=== PATIENT | female | born 1980 | race Caucasian/White ===

== ENCOUNTER 2023-11-27 03:23 | Emergency (ER) | payer BC, SELFPAY ==
[2023-11-27] VITALS (7 sets, daily range): BP systolic 95–118; BP diastolic 60–84; PULSE 68–85; RESP 16–18; O2SAT 96–99; BMI 29.2
[2023-11-27] MEDS: ondansetron 2 mg/ML SDV 2 mL 4 MG IVP ×2 (04:26→06:18)
[2023-11-27] MEDS: sodium chloride 0.9% 1,000 ML 999 ML IV ×2 (04:26→11:17)
[2023-11-27 04:35] LABS: Basophils % 0.3 %; Eosinophils % 0.2 %; Lymphocytes # 0.7 10^3/uL (0.8-4.8); Lymphocytes % 4.7 %; Mean Corpuscular HGB Conc 33.5 g/dL (30-55); Mean Corpuscular Hemoglobin 29.4 pg (27-33); Mean Corpuscular Volume 87.9 fl (85-98); Mean Platelet Volume 9.3 fL (7.4-10.4); Monocytes # 0.6 10^3/uL (0.2-0.9); Monocytes % 4.2 %; Neutrophils # 12.93 10^3/uL (1.8-7.7); Neutrophils % 90.3 %; Nucleated Red Blood Cells % 0 %; Platelet Count 279 10^3/cmm (157-399); Red Blood Count 4.89 10^6/uL (3.85-5.65); Red Cell Distribution Width 12.7 % (12.1-15.1); White Blood Count 14.32 10^3/uL (3.29-11.43)
[2023-11-27 04:51] LABS: HCG, Serum Qual Negative (Negative)
[2023-11-27 04:59] LABS: Alanine Aminotransferase 15 U/L (0-33); Albumin Level 4.1 g/dL (3.5-5.2); Alkaline Phosphatase 79 U/L (35-105); Anion Gap 15.6 (5-19); Aspartate Amino Transferase 15 U/L (0-32); Blood Urea Nitrogen 17 mg/dL (6-20); Carbon Dioxide 17 mmol/L (22-29); Chloride 107 mmol/L (98-107); Globulin 3.3 g/dL (1.3-4.6); Glomerular Filtration Rate 108.6 mL/min (90-130); Glucose 98 mg/dL (65-115); Lipase 24 U/L (13-60); Osmolality Calculated 284 mOsm/kg (285-295); Potassium 3.6 mmol/L (3.5-5.1); Sodium 136 mmol/L (136-145); Total Bilirubin 0.5 mg/dL (0.15-1.2); Total Protein 7.4 g/dL (6.6-8.7)
[2023-11-27 05:03] LABS: Procalcitonin 0.05 ng/mL (0-0.5)
--- NOTE | 2023-11-27 05:26 | ED_ITS ---
Documented by User: Tarik Shahid DO 11/27/23 17:56 HPI - Nausea/Vomiting/Diarrhea 2 General: Chief complaint: Nausea/Vomiting/Diarrhea Stated complaint: N/V/D Time Seen by Provider: 11/27/23 04:04 Physical Exam 2 Neuro: EMERALD COMA SCALE: document GCS findings [place] coma scale total score: 15 Course 2 Vital Signs: Vital signs: Vital Signs Pulse Rate 85 11/27/23 06:15 Respiratory Rate 16 11/27/23 06:15 Blood Pressure 98/71 11/27/23 10:35 Pulse Oximetry 99 11/27/23 06:15 Oxygen Delivery Me thod Room Air 11/27/23 03:27 MDM - Nausea/Vomiting/Diarrhea Medical Decision Making Patient had been discharged by Dr. Bravo earlier was complaining of slowing nausea vomiting she was given extra dose of Reglan and IV fluids admitted considerable time since she initially had a CBC and CMP these were repeated remained relatively normal. Patient has had no further vomiting will discharge patient home as per Dr. Dexter instructions return if is further problems. C. difficile was negative so I did ask her not to take the metronidazole. Medical Records I reviewed the patient's medical records. Lab Data I reviewed the patient's lab results. 11/27/23 10:51 11/27/23 10:51 Laboratory Results WBC 10.22 10^3/uL (3.29-11.43) 11/27/23 10:51 RBC 4.60 10^6/uL (3.85-5.65) 11/27/23 10:51 Hgb 13.60 g/dL (11.27-16.99) 11/27/23 10:51 Hct 41.8 % (36-47) 11/27/23 10:51 MCV 90.9 fl (85-98) 11/27/23 10:51 MCH 29.6 pg (27-33) 11/27/23 10:51 MCHC 32.5 g/dL (30-55) 11/27/23 10:51 RDW 12.9 % (12.1-15.1) 11/27/23 10:51 Plt Count 245 10^3/cmm (157-399) 11/27/23 10:51 MPV 9.4 fL (7.4-10.4) 11/27/23 10:51 Neut % (Auto) 88.3 % 11/27/23 10:51 Lymph % (Auto) 7.4 % 11/27/23 10:51 Runnels % (Auto) 3.5 % 11/27/23 10:51 Eos % (Auto) 0.2 % 11/27/23 10:51 Baso % (Auto) 0.2 % 11/27/23 10:51 Neut # (Auto) 9.02 10^3/uL (1.8-7.7) H 11/27/23 10:51 Lymph # (Auto) 0.8 10^3/uL (0.8-4.8) 11/27/23 10:51 Runnels # (Auto) 0.4 10^3/uL (0.2-0.9) 11/27/23 10:51 Eos # (Auto) 0.0 10^3/uL (0.0-0.8) 11/27/23 10:51 Baso # (Auto) 0.0 10^3/uL (0.0-0.1) 11/27/23 10:51 Nucleated RBC % (auto) 0 % 11/27/23 10:51 Nucleated RBCs # 0.0 /100WBC 11/27/23 10:51 Sodium 137 mmol/L (136-145) 11/27/23 10:51 Potassium 3.5 mmol/L (3.5-5.1) 11/27/23 10:51 Chloride 109 mmol/L (98-107) H 11/27/23 10:51 Carbon Dioxide 17 mmol/L (22-29) L 11/27/23 10:51 Anion Gap 14.5 (5-19) 11/27/23 10:51 BUN 14 mg/dL (6-20) 11/27/23 10:51 Creatinine 0.7 mg/dL (0.5-0.9) 11/27/23 10:51 GFR Calculation 90.9 mL/min (90-130) 11/27/23 10:51 Glucose 82 mg/dL (65-115) 11/27/23 10:51 Calculated Osmolality 284 mOsm/kg (285-295) L 11/27/23 10:51 Calcium 8.3 mg/dL (8.5-10.5) L 11/27/23 10:51 Total Bilirubin 0.7 mg/dL (0.15-1.2) 11/27/23 10:51 AST 16 U/L (0-32) 11/27/23 10:51 ALT 15 U/L (0-33) 11/27/23 10:51 Alkaline Phosphatase 71 U/L (35-105) 11/27/23 10:51 C-Reactive Protein 3.0 mg/L (0.0-4.9) 11/27/23 04:28 Total Protein 6.7 g/dL (6.6-8.7) 11/27/23 10:51 Albumin 3.8 g/dL (3.5-5.2) 11/27/23 10:51 Globulin 2.9 g/dL (1.3-4.6) 11/27/23 10:51 Lipase 24 U/L (13-60) 11/27/23 04:28 Procalcitonin 0.05 ng/mL (0-0.5) 11/27/23 04:28 HCG, Qual Negative (Negative) 11/27/23 04:28 Urine Color Yellow (Yellow) 11/27/23 12:56 Urine Appearance Sl hazy (CLEAR) A 11/27/23 12:56 Urine pH 5 (5-7) 11/27/23 12:56 Ur Specific [place] 1.020 (1.005-1.030) 11/27/23 12:56 Urine Protein Neg (Negative) 11/27/23 12:56 Urine Glucose (UA) Norm (Normal) 11/27/23 12:56 Urine Ketones 1+ (Negative) H 11/27/23 12:56 Urine Blood 2+ (Negative) H 11/27/23 12:56 Urine Nitrate Negative (Negative) 11/27/23 12:56 Urine Bilirubin Neg (Negative) 11/27/23 12:56 Urine Urobilinogen Norm mg/dL (Negative) 11/27/23 12:56 Ur Leukocyte Esterase 1+ (Negative) H 11/27/23 12:56 Urine RBC 5-10 /hpf (0-2) H 11/27/23 12:56 Urine WBC 5-10 /hpf (0-5) H 11/27/23 12:56 Ur Squamous Epith Cells 0-4 /hpf (0-5) H 11/27/23 12:56 Amorphous Sediment Not Reportable 11/27/23 12:56 Urine Bacteria 2+ /hpf (NONE) H 11/27/23 12:56 C. difficile (PCR) Negative (Negative) 11/27/23 03:29 All radiology interpretation(s) finalized by discharge Discharge Plan Discharge Patient Disposition: Home Clinical Impression: Colitis Condition: Stable Prescriptions: New metronidazole 500 mg tablet 500 mg PO TID Qty: 30 0RF Lomotil 2.5-0.025 mg tablet 1 tab PO Q8H PRN (Reason: diarrhea) Qty: 10 0RF Discharge Orders: Discharge ED (Routine); Ordered 11/27/23 Ordered By: Heriberto Bravo Patient Instructions: Colitis (ED), Opioid Safety, Pain Management Activity Restrictions/Additional Instructions: Your C. difficile test in the ER was negative. You do have signs of colitis with diarrhea. you will be placed on antibiotics. you will also be placed on a medication to slow the diarrhea. You can take this as needed. Follow a liquid diet for 24 hours. If diarrhea slows appropriately, you may add solid food back into your diet. Return for worsening pain, vomiting, continued or worsening diarrhea despite treatment, or fever. See your doctor next week. 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 She has not had a fever. She states that her and children have had the illness as well. She's experiencing considerable diarrhea, with ability to control her stools. No vomiting.she was in the hospital two weeks ago, for shunt placement in her head. Because of this, she is worried that she has c diff colitis. no recent antibiotic usage. Associated nausea: Yes Associated symtoms: Reports nausea; Denies chest pain or fecal incontinence Review of Systems 2 Const: Denies: fever(s) ENMT: Denies: throat pain Card: Denies: chest pain Resp: Denies: dyspnea or productive cough GI: Reports: abdominal pain, nausea and diarrhea; Denies: vomiting, fecal incontinence, hematochezia or melena Physical Exam 2 Const: GENERAL APPEARANCE: cooperative and ill appearing (mildly); not frail appearing HENMT: COMMON NORMALS: normocephalic, atraumatic and Normal external nose present HEAD & SCALP: normocephalic and atraumatic FACE & SINUS: normal facial exam and face symmetric NOSE: Normal external nose present Eye: COMMON NORMALS: Equal, round and reactive pupils present and EOMs intact bilaterally PUPIL: Yes Equal, round and reactive pupils present Neck/C-Spine: GENERAL: Yes trachea midline Chest: CHEST: Yes Symmetrical chest wall rise Resp: COMMON NORMALS: normal respiratory effort, No retractions, No use of accessory muscles and clear to auscultation bilaterally AUSCULTATION: clear to auscultation bilaterally Cardio: COMMON NORMALS: regular rate and regular rhythm RATE: regular rate RHYTHM: regular rhythm GI: COMMON NORMALS: Normal to inspection, nondistended, normoactive bowel sounds present Extremity: COMMON NORMALS: no pedal edema Neuro: EMERALD COMA SCALE: document GCS findings [place] coma scale eye opening: Spontaneous [place] coma scale verbal response: Orientated [place] coma scale motor response: Obey commands [place] coma scale total score: 15 S ENSORY EXAM: Yes extremities (intact) Psych: COMMON NORMALS: speech normal SPEECH: Yes normal speech Skin: COMMON NORMALS: no rashes or lesions noted GENERAL SKIN EXAM: no rashes or lesions noted Course 2 Vital Signs: Vital signs: Vital Signs Pulse Rate 85 11/27/23 06:15 Respiratory Rate 16 11/27/23 06:15 Blood Pressure 98/71 11/27/23 10:35 Pulse Oximetry 99 11/27/23 06:15 Oxygen Delivery Me thod Room Air 11/27/23 03:27 MDM - Nausea/Vomiting/Diarrhea Medical Decision Making vitals have been stable. she has had considerable diarrhea here. received iv fluids. wbc is 14 initially but crp is 3. repeat wbc is 10. she did begin to complain of nausea and was given anti emetics. c diff negative. lomotil to decrese frequency of stool. Patient had been discharged by Dr. Bravo earlier was complaining of slowing nausea vomiting she was given extra dose of Reglan and IV fluids admitted considerable time since she initially had a CBC and CMP these were repeated remained relatively normal. Patient has had no further vomiting will discharge patient home as per Dr. Dexter instructions return if is further problems. C. difficile was negative so I did ask her not to take the metronidazole. Lab Data 11/27/23 10:51 11/27/23 10:51 Laboratory Results WBC 10.22 10^3/uL (3.29-11.43) 11/27/23 10:51 RBC 4.60 10^6/uL (3.85-5.65) 11/27/23 10:51 Hgb 13.60 g/dL (11.27-16.99) 11/27/23 10:51 Hct 41.8 % (36-47) 11/27/23 10:51 MCV 90.9 fl (85-98) 11/27/23 10:51 MCH 29.6 pg (27-33) 11/27/23 10:51 MCHC 32.5 g/dL (30-55) 11/27/23 10:51 RDW 12.9 % (12.1-15.1) 11/27/23 10:51 Plt Count 245 10^3/cmm (157-399) 11/27/23 10:51 MPV 9.4 fL (7.4-10.4) 11/27/23 10:51 Neut % (Auto) 88.3 % 11/27/23 10:51 Lymph % (Auto) 7.4 % 11/27/23 10:51 R[place] % (Auto) 3.5 % 11/27/23 10:51 Eos % (Auto) 0.2 % 11/27/23 10:51 Baso % (Auto) 0.2 % 11/27/23 10:51 Neut # (Auto) 9.02 10^3/uL (1.8-7.7) H 11/27/23 10:51 Lymph # (Auto) 0.8 10^3/uL (0.8-4.8) 11/27/23 10:51 Runnels # (Auto) 0.4 10^3/uL (0.2-0.9) 11/27/23 10:51 Eos # (Auto) 0.0 10^3/uL (0.0-0.8) 11/27/23 10:51 Baso # (Auto) 0.0 10^3/uL (0.0-0.1) 11/27/23 10:51 Nucleated RBC % (auto) 0 % 11/27/23 10:51 Nucleated RBCs # 0.0 /100WBC 11/27/23 10:51 Sodium 137 mmol/L (136-145) 11/27/23 10:51 Potassium 3.5 mmol/L (3.5-5.1) 11/27/23 10:51 Chloride 109 mmol/L (98-107) H 11/27/23 10:51 Carbon Dioxide 17 mmol/L (22-29) L 11/27/23 10:51 Anion Gap 14.5 (5-19) 11/27/23 10:51 BUN 14 mg/dL (6-20) 11/27/23 10:51 Creatinine 0.7 mg/dL (0.5-0.9) 11/27/23 10:51 GFR Calculation 90.9 mL/min (90-130) 11/27/23 10:51 Glucose 82 mg/dL (65-115) 11/27/23 10:51 Calculated Osmolality 284 mOsm/kg (285-295) L 11/27/23 10:51 Calcium 8.3 mg/dL (8.5-10.5) L 11/27/23 10:51 Total Bilirubin 0.7 mg/dL (0.15-1.2) 11/27/23 10:51 AST 16 U/L (0-32) 11/27/23 10:51 ALT 15 U/L (0-33) 11/27/23 10:51 Alkaline Phosphatase 71 U/L (35-105) 11/27/23 10:51 C-Reactive Protein 3.0 mg/L (0.0-4.9) 11/27/23 04:28 Total Protein 6.7 g/dL (6.6-8.7) 11/27/23 10:51 Albumin 3.8 g/dL (3.5-5.2) 11/27/23 10:51 Globulin 2.9 g/dL (1.3-4.6) 11/27/23 10:51 Lipase 24 U/L (13-60) 11/27/23 04:28 Procalcitonin 0.05 ng/mL (0-0.5) 11/27/23 04:28 HCG, Qual Negative (Negative) 11/27/23 04:28 Urine Color Yellow (Yellow) 11/27/23 12:56 Urine Appearance Sl hazy (CLEAR) A 11/27/23 12:56 Urine pH 5 (5-7) 11/27/23 12:56 Ur Specific [place] 1.020 (1.005-1.030) 11/27/23 12:56 Urine Protein Neg (Negative) 11/27/23 12:56 Urine Glucose (UA) Norm (Normal) 11/27/23 12:56 Urine Ketones 1+ (Negative) H 11/27/23 12:56 Urine Blood 2+ (Negative) H 11/27/23 12:56 Urine Nitrate Negative (Negative) 11/27/23 12:56 Urine Bilirubin Neg (Negative) 11/27/23 12:56 Urine Urobilinogen Norm mg/dL (Negative) 11/27/23 12:56 Ur Leukocyte Esterase 1+ (Negative) H 11/27/23 12:56 Urine RBC 5-10 /hpf (0-2) H 11/27/23 12:56 Urine WBC 5-10 /hpf (0-5) H 11/27/23 12:56 Ur Squamous Epith Cells 0-4 /hpf (0-5) H 11/27/23 12:56 Amorphous Sediment Not Reportable 11/27/23 12:56 Urine Bacteria 2+ /hpf (NONE) H 11/27/23 12:56 C. difficile (PCR) Negative (Negative) 11/27/23 03:29 No radiology studies performed this visit Discharge Plan Discharge Patient Disposition: Home Clinical Impression: Colitis Condition: Stable Prescriptions: New metronidazole 500 mg tablet 500 mg PO TID Qty: 30 0RF Lomotil 2.5-0.025 mg tablet 1 tab PO Q8H PRN (Reason: diarrhea) Qty: 10 0RF Discharge Orders: Discharge ED (Routine); Ordered 11/27/23 Ordered By: Heriberto Bravo Patient Instructions: Colitis (ED), Opioid Safety, Pain Management Activity Restrictions/Additional Instructions: Your C. difficile test in the ER was negative. You do have signs of colitis with diarrhea. you will be placed on antibiotics. you will also be placed on a medication to slow the diarrhea. You can take this as needed. Follow a liquid diet for 24 hours. If diarrhea slows appropriately, you may add solid food back into your diet. Return for worsening pain, vomiting, continued or worsening diarrhea despite treatment, or fever. See your doctor next week. 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
[2023-11-27 05:33] LABS: C.Diff PCR (Lab) NEGATIVE (Negative)
[2023-11-27] MEDS: diphenoxylate/atropine Tablet 1 TAB PO (06:11)
[2023-11-27] MEDS: metroNIDAZOLE 500 MG Tablet PO (06:11)
--- NOTE | 2023-11-27 08:51 | PC.NURSE ---
PER EARLY CHILDHOOD EDUCATION WORKER NURSE, PATIENT'S WAS ON HIS WAY TO GET PATIENT. SPOKE WITH PATIENT AND SHE STATES HER IS PROBABLY ASLEEP AND IS NOT ON HIS WAY. WHEN DISCUSSING ARRANGING RIDE WITH PATIENT, SHE STATED THAT SHE DOES NOT FEEL WELL ENOUGH TO GO HOME. PATIENT SIGNED DISCHARGE PAPERWORK PRIOR TO DAY SHIFT.
[2023-11-27] MEDS: metoclopramide 5 mg/mL SDV 2 mL IM (09:04)
--- NOTE | 2023-11-27 10:28 | PC.NURSE ---
SPOKE WITH DR. BYRNE TWICE TO REPORT PATIENT REQUEST TO SPEAK WITH DOCTOR. PATIENT HAS REFUSED DISCHARGE AFTER SIGNING DISCHARGE PAPERS AND STILL STATES SHE DOES NOT HAVE A RIDE. ACCOMPANIED DR. BYRNE AT 1033 TO SPEAK WITH PATIENT ABOUT DISCHARGE. PATIENT STATED SHE FELT SHE CANNOT STAND UP WITHOUT PASSING OUT AND THAT SHE IS STILL NAUSEOUS WITH DIARRHEA AND DOES NOT FEEL WELL ENOUGH TO DISCHARGE.
[2023-11-27 11:54] LABS: Basophils % 0.2 %; Eosinophils % 0.2 %; Hematocrit 41.8 % (36-47); Lymphocytes # 0.8 10^3/uL (0.8-4.8); Lymphocytes % 7.4 %; Mean Corpuscular HGB Conc 32.5 g/dL (30-55); Mean Corpuscular Hemoglobin 29.6 pg (27-33); Mean Corpuscular Volume 90.9 fl (85-98); Mean Platelet Volume 9.4 fL (7.4-10.4); Monocytes # 0.4 10^3/uL (0.2-0.9); Monocytes % 3.5 %; Neutrophils # 9.02 10^3/uL (1.8-7.7); Neutrophils % 88.3 %; Nucleated Red Blood Cells % 0 %; Platelet Count 245 10^3/cmm (157-399); Red Cell Distribution Width 12.9 % (12.1-15.1); White Blood Count 10.22 10^3/uL (3.29-11.43)
[2023-11-27 12:10] LABS: Alanine Aminotransferase 15 U/L (0-33); Albumin Level 3.8 g/dL (3.5-5.2); Alkaline Phosphatase 71 U/L (35-105); Anion Gap 14.5 (5-19); Aspartate Amino Transferase 16 U/L (0-32); Blood Urea Nitrogen 14 mg/dL (6-20); Calcium 8.3 mg/dL (8.5-10.5); Carbon Dioxide 17 mmol/L (22-29); Chloride 109 mmol/L (98-107); Creatinine Clr Calc Pharmacy 103.0757; Globulin 2.9 g/dL (1.3-4.6); Glomerular Filtration Rate 90.9 mL/min (90-130); Glucose 82 mg/dL (65-115); Osmolality Calculated 284 mOsm/kg (285-295); Potassium 3.5 mmol/L (3.5-5.1); Sodium 137 mmol/L (136-145); Total Bilirubin 0.7 mg/dL (0.15-1.2); Total Protein 6.7 g/dL (6.6-8.7)
[2023-11-27 13:15] LABS: Blood Urine 2+ (Negative); Glucose Urine UA Norm (Normal); Ketones Urine 1+ (Negative); Protein Urine Neg (Negative); Urine Appearance SL Hazy (CLEAR); Urine Color Yellow (Yellow); pH Urine 5 (5-7)
[2023-11-27 13:16] LABS: Add Urine Culture? Yes; Add Urine Microscopic? YES; Bacteria Urine 2+ /hpf; Bilirubin Urine Neg (Negative); Leukocyte Esterase Urine 1+ (Negative); Nitrate Urine Negative (Negative); Squamous Epithelial Cell Urine 0-4 /hpf (0-5); Urobilinogen Urine Norm (Negative)
== END 2023-11-27 13:17 | disposition home or self-care (01) ==
PROVIDERS: Emergency Medicine; Emergency Provider Family Medicine
DX: K52.9 Noninfective gastroenteritis and colitis, unspecified (principal)
CPT/HCPCS: 36415; 80053; 81001; 82274; 83630; 83690; 84145; 84703; 85025; 86140; 87045; 87077; 87086; 87186; 87427; 87449; 87493; 96361; 96372; 96374; 96376; 99284; J2405; J2765; J7030